=== PATIENT | female | born 1930 | race Caucasian/White ===

== ENCOUNTER 2019-01-27 18:45 | Emergency (ER) | payer MEDICARE ==
--- NOTE | 2019-01-27 18:56 | EDM.PDOC ---
ED HPI GENERAL MEDICAL PROBLEM - General Chief Complaint: Back Pain or Injury Stated Complaint: left flank pain Time Seen by Provider: 01/27/19 18:54 Source of Information: Reports: Patient, Family History Limitations: Reports: No Limitations - History of Present Illness INITIAL COMMENTS - FREE TEXT/NARRATIVE: Patient is a 88-year-old who fell about 4 days ago now complains of left mid chest pain and left hand pain there is definitely swelling on the left hand tender to palpation over the ribs on the left side Onset: Gradual Duration: Day(s):, Getting Worse Location: Reports: Chest, Upper Extremity, Left Quality: Reports: Ache Improves with: Reports: Rest Worsens with: Reports: None Context: Reports: Trauma Associated Symptoms: Reports: No Other Symptoms Treatments R[employer]ER: Reports: Acetaminophen Left Back Pain Score (Numeric/FACES): 4 - Related Data Allergies Allergy/AdvReac Type Severity Reaction Status Date / Time No Known Allergies Allergy Verified 10/10/13 12:57 Home Meds: Home Meds Aspirin [Halfprin] 81 mg PO DAILY 10/10/13 [History] Budesonide [Pulmicort] 0.25 mg INH BID 10/10/13 [History] Calcium Carbonate [Tums Extra Strength] 750 mg PO BID 10/10/13 [History] Cholecalciferol (Vitamin D3) [Vitamin D] 400 unit PO BID 10/10/13 [History] Donepezil [Aricept] 10 mg PO DAILY 10/10/13 [History] Ipratropium/Albuterol Sulfate [Duoneb 0.5 mg-3 mg/3 ml Soln] 3 ml IH BID [History] Magnesium Oxide [Magnesium] 400 mg PO DAILY 10/10/13 [History] Oxybutynin 5 mg PO BID 10/10/13 [History] Ubidecarenone [Coenzyme Q10] 100 mg PO BID 10/10/13 [History] Vit A/Vit C/Vit E/Zinc/Copper [Preservision] 1 each PO DAILY 10/10/13 [History] Memantine HCl 10 mg PO DAILY 01/27/19 [History] ED ROS GENERAL - Review of Systems Review Of Systems: See Below Constitutional: Reports: No Symptoms HEENT: Reports: No Symptoms Respiratory: Reports: No Symptoms Cardiovascular: Reports: No Symptoms Endocrine: Reports: No Symptoms GI/Abdominal: Reports: No Symptoms : Reports: Frequency Musculoskeletal: Reports: Hand Pain Skin: Reports: Bruising, Change in Color Neurological: Reports: No Symptoms Psychiatric: Reports: No Symptoms Hematologic/Lymphatic: Reports: No Symptoms Immunologic: Reports: No Symptoms ED EXAM, GENERAL - Physical Exam Exam: See Below Exam Limited By: No Limitations General Appearance: Alert, WD/WN, No Apparent Distress Ears: Hearing Loss Ear Exam: Bilateral Ear: Auricle Normal, Canal Normal, TM normal Nose: Normal Inspection, Normal Mucosa, No Blood Throat/Mouth: Normal Inspection, Normal Lips, Normal Teeth, Normal Gums, Normal Oropharynx, Normal Voice, No Airway Compromise Head: Atraumatic, Normocephalic Neck: Normal Inspection, Supple, Non-Tender, Full Range of Motion Respiratory/Chest: No Respiratory Distress, Lungs Clear, Normal Breath Sounds, No Accessory Muscle Use, Chest Non-Tender Cardiovascular: Normal Peripheral Pulses GI/Abdominal: Normal Bowel Sounds, Soft, Non-Tender, No Organomegaly, No Distention, No Abnormal Bruit, No Mass Back Exam: Decreased Range of Motion Extremities: Limited Range of Motion Neurological: Alert, Oriented, CN II-XII Intact, Normal Cognition, Normal Gait, Normal Reflexes, No Motor/Sensory Deficits Psychiatric: Normal Affect Skin Exam: Warm, Dry, Intact, Normal Color, No Rash Course - Vital Signs Last Recorded V/S: Last Vital Signs Temp 98.4 F 01/27/19 18:46 Pulse 76 01/27/19 18:46 Resp 16 01/27/19 18:46 BP 130/63 01/27/19 18:46 Pulse Ox 97 01/27/19 18:46 - Orders/Labs/Meds Orders: Active Orders 24 hr Category Date Time Status Chest 2V [CR] Stat Exams 01/27/19 18:52 Taken Hand Comp Min 3V Lt [CR] Stat Exams 01/27/19 18:52 Taken Ribs 2V w Chest Lt [CR] Stat Exams 01/27/19 19:31 Taken Departure - Departure Time of Disposition: 21:10 Disposition: Home, Self-Care 01 Condition: Fair Clinical Impression: Fracture of second metacarpal bone of left hand - Discharge Information *PRESCRIPTION DRUG MONITORING PROGRAM REVIEWED*: No *COPY OF PRESCRIPTION DRUG MONITORING REPORT IN PATIENT DAVEY: No Instructions: Cast or Splint Care, Adult, [id number], Cast or Splint Care, Adult Referrals: PCP,None [Primary Care Provider] - Forms: ED Department Discharge Care Plan Goals: At this time fracture was casted will follow her up in 2 weeks chest x-ray seen questionable acute fractures of the ribs 6 and 7 on the left side will treat conservatively follow-up with primary in 2 weeks - My Orders Last 24 Hours: My Active Orders 01/27/19 18:52 Chest 2V [CR] Stat Hand Comp Min 3V Lt [CR] Stat 01/27/19 19:31 Ribs 2V w Chest Lt [CR] Stat - Assessment/Plan Last 24 Hours: My Active Orders 01/27/19 18:52 Chest 2V [CR] Stat Hand Comp Min 3V Lt [CR] Stat 01/27/19 19:31 Ribs 2V w Chest Lt [CR] Stat
== END 2019-01-27 21:25 | disposition home or self-care (01) ==
LOC: LL.ED 18:45
DX: S62.301A Unspecified fracture of second metacarpal bone, left hand, initial encounter for closed fracture (principal); S22.42XA Multiple fractures of ribs, left side, initial encounter for closed fracture; Z79.82 Long term (current) use of aspirin; Z79.899 Other long term (current) drug therapy; W18.39XA Other fall on same level, initial encounter
CPT/HCPCS: 29075; 71046; 71101-LT; 73130-LT; 99283; 99283-25